=== PATIENT | male | born 1960 | race Caucasian/White ===

== ENCOUNTER 2017-02-04 08:16 | Day surgery (SDC) | payer BC ==
[~2017-02-04 08:16] MED LIST: Lactated Ringers 1,000 ML IV SCH; Lidocaine 1%/Sod Bicarbonate in NS 8.4% 1 ML Syringe PRN; Sodium Chloride 0.9% 10 ML Syringe FLUSH PRN
[2017-02-04] MEDS ORDERED: Bupivacaine 0.25% 30 ML SDV ONE (09:16)
[2017-02-04] MEDS ORDERED: EPINEPHrine 1 MG/ML 30 ML MDV ONE (09:16)
--- NOTE | 2017-02-04 09:21 | PCM.PREANE ---
Preanesthetic Assessment - Anesthesia/Transfusion/Family Hx Anesthesia History: Prior Anesthesia Without Reaction Family History of Anesthesia Reaction: No Transfusion History: No Prior Transfusion(s) Intubation History: Unknown - Review of Systems General: No Symptoms Pulmonary: No Symptoms Cardiovascular: No Symptoms Gastrointestinal: No Symptoms (occasional GERD) Neurological: No Symptoms, Seizure (disorder as a child) Other: Reports: None, Sinus Problem (allergic rhinitis) - Physical Assessment NPO Status Date: 02/03/17 NPO Status Time: 22:00 Pulse: 67 O2 Sat by Pulse Oximetry: 95 Respiratory Rate: 16 Blood Pressure: 128/83 Temperature: 36.2 C Vital Signs: Last Vital Signs Temp 36.2 C 02/04/17 08:25 Pulse 67 02/04/17 08:25 Resp 16 02/04/17 08:25 BP 128/83 02/04/17 08:25 Pulse Ox 95 02/04/17 08:25 Height: 1.91 m Weight: 112.037 kg ASA Class: 1 Mental Status: Alert & Oriented x3 Airway Class: Mallampati = 2 Dentition: Reports: Normal Dentition, Manti(s), Caries (caps in the front.) Thyro-Mental Finger Breadths: 3 Mouth Opening Finger Breadths: 3 ROM/Head Extension: Full Lungs: Clear to Auscultation, Normal Respiratory Effort Cardiovascular: Regular Rate, Regular Rhythm, No Murmurs - Lab Values: Laboratory Last Values MRSA (PCR) Negative 02/02/17 07:46 Lab values reviewed and noted and within acceptable ranges to proceed with scheduled procedure. - Imaging/EKG Impressions: EK01/01/2016 SB rate= 58, borderline T abnormalities, inferior leads, Q wave in lead III, and Twave inversion in III, and avF. Repeat EKG 01/01/2016 SB rate =59, PVC, interpolated ventricular premature complex, nonspecific T abnormalities, inferior leads. CXR: Nothing acute seen in CXR. (09/13/2015 - Allergies Allergies/Adverse Reactions: Allergies Allergy/AdvReac Type Severity Reaction Status Date / Time No Known Allergies Allergy Verified 02/03/17 16:09 - Anesthesia Plan Pre-Op Medication Ordered: None - Acknowledgements Anesthesia Type Planned: General Anesthesia Pt an Appropriate Candidate for the Planned Anesthesia: Yes Alternatives and Risks of Anesthesia Discussed w Pt/Guardian: Yes Pt/Guardian Understands and Agrees with Anesthesia Plan: Yes PreAnesthesia Questionnaire HEENT History: Reports: Allergic Rhinitis, Impaired Vision, Otitis Media, Other (See Below) Other HEENT History: conjunctivitis Cardiovascular History: Reports: High Cholesterol, Hypertension Respiratory History: Reports: Other (See Below) Other Respiratory History: cough Gastrointestinal History: Reports: Other (See Below) Other Gastrointestinal History: gastroenteritis [employer] History: Reports: None Musculoskeletal History: Reports: Other (See Below) Other Musculoskeletal History: R meniscus tear Neurological History: Reports: Seizure Psychiatric History: Reports: None Endocrine/Metabolic History: Reports: Obesity/BMI 30+ Hematologic History: Reports: None Immunologic History: Reports: None Oncologic (Cancer) History: Reports: None Dermatologic History: Reports: None - Past Surgical History Head Surgeries/Procedures: Reports: None GI Surgical History: Reports: Colonoscopy Male Surgical History: Reports: Vasectomy Oncologic Surgical History: Reports: None - SUBSTANCE USE Smoking Status *Q: Never Smoker Second Hand Smoke Exposure: No Days Per Week of Alcohol Use: 0 Number of Drinks Per Day: 0 Total Drinks Per Week: 0 Recreational Drug Use History: No - HOME MEDS Home Medications: Home Meds Aspirin [Halfprin] 81 mg PO BID 08/24/14 [History] Mometasone Furoate [Nasonex Viola] 1 spray ALLEGRA DAILY PRN 08/24/14 [History] Pravastatin Sodium 80 mg PO DAILY 02/03/17 [History] Acetaminophen [Tylenol Extra Strength] 1,000 mg PO ASDIRECTED PRN 02/04/17 [ History] - CURRENT (IN HOUSE) MEDS Current Meds: Current Medications Lactated Ringer's (Ringers, Lactated) 1,000 mls @ 125 mls/hr IV ASDIRECTED [place] Stop: 02/04/17 23:00 Last Admin: 02/04/17 08:45 Dose: 125 mls/hr Lidocaine/Sodium Bicarbonate (Buffered Lidocaine 1% In Ns 8.4%) 0.25 ml .XX ONETIME PRN PRN Reason: Prior to IV Start Stop: 02/04/17 18:00 Last Admin: 02/04/17 08:44 Dose: 0.25 ml Sodium Chloride (Saline Flush) 10 ml FLUSH ASDIRECTED PRN PRN Reason: Keep Vein Open Stop: 02/04/17 18:00
[2017-02-04] MEDS ORDERED: Propofol 200 MG/20 ML SDV ONE (10:24)
[2017-02-04] MEDS ORDERED: Midazolam 1 MG/ML 2 ML SDV ONE (10:24)
[2017-02-04] MEDS ORDERED: ceFAZolin 1 GM Vial ONE (10:25)
[2017-02-04] MEDS ORDERED: Lidocaine 1% 6 ML ONE (10:25)
[2017-02-04] MEDS ORDERED: Morphine PF 10 MG/10 ML SDV ONE (10:25)
[2017-02-04] MEDS ORDERED: fentaNYL 100 MCG/2 ML SDV ONE (10:46)
[2017-02-04] MEDS ORDERED: Ondansetron 4 MG/2 ML SDV ONE (11:30)
--- NOTE | 2017-02-04 11:54 | PCM.POSTAN ---
POST ANESTHESIA ASSESSMENT - MENTAL STATUS Mental Status: Alert, Oriented - VITAL SIGNS Pulse Rate: 62 SaO2: 96 Resp Rate: 8 Blood Pressure: 126/90 Temperature: 98.2 C - RESPIRATORY Respiratory Status: Respiratory Rate WNL, Airway Patent, O2 Saturation Stable - CARDIOVASCULAR CV Status: Pulse Rate WNL, Blood Pressure Stable - GASTROINTESTINAL GI Status: No Symptoms - PAIN Pain Score: 1 - POST OP HYDRATION Hydration Status: Adequate & Stable
[2017-02-04] MEDS ORDERED: HYDROmorphone 0.5 MG/0.5 ML Syringe IVPUSH PRN (12:00)
[2017-02-04] MEDS ORDERED: fentaNYL 100 MCG/2 ML SDV IVPUSH PRN (12:00)
--- NOTE | 2017-02-04 12:15 | PCM48HPAN ---
Post Anesthesia Note - EVALUATION WITHIN 48HRS OF ANESTHETIC Vital Signs in Normal Range: Yes Patient Participated in Evaluation: Yes Respiratory Function Stable: Yes Airway Patent: Yes Cardiovascular Function Stable: Yes Hydration Status Stable: Yes Pain Control Satisfactory: Yes Nausea and Vomiting Control Satisfactory: Yes Mental Status Recovered: Yes
[2017-02-04 14:04] VITALS: BP 119/80
--- NOTE | 2017-02-04 22:38 | PCM.OPNOTE ---
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
--- NOTE | 2017-02-04 23:35 | OR ---
DATE OF OPERATION: 02/04/2017 SURGEON: Hussain Caldwell MD OPERATION PERFORMED: Right knee video arthroscopy, partial medial meniscectomy, and plica resection. PREOPERATIVE DIAGNOSIS: Right knee medial meniscus tear. POSTOPERATIVE DIAGNOSIS: 1. 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 2. 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 ANESTHESIA: General LMA with local. ANESTHESIA PROVIDER: Alex Correa MD. ESTIMATED BLOOD LOSS: 5 mL. COMPLICATIONS: None. CONDITION: Stable. DESCRIPTION OF PROCEDURE: The patient was identified in the preoperative holding area. Proper site was marked and identified by the surgeon. The patient was taken back to the operating theater where after adequate anesthesia, the patient's right lower extremity had a nonsterile tourniquet applied and was then placed in a C-clamp cervantes. The left lower extremity was placed in a well leg cervantes. Right lower extremity was then sterilely prepped and draped in the usual sterile fashion. OR time-out was performed. The patient received 2 g of IV Ancef. Right lower extremity was then exsanguinated. Tourniquet was insufflated to 300 mmHg. At this time, a standard anterior lateral portal was created. The scope trocar was introduced and cursory examination was performed of the patellofemoral joint. 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 There were no loose foreign bodies in the mediolateral gutter. Attention was turned to the medial compartment. With the use of a spinal needle, anterior medial portal was created under direct visualization. The probe was then introduced showing a diffuse tear of the posterior horn of the medial meniscus and it was mostly an undersurface tear. At this time, with the use of resector, the undersurface portion was trimmed out. The superior portion was found to be stable. So, this was left intact secondary to the patient's known arthritis to hopefully prevent further arthritic change. At this time, after it was found to be stable, attention was turned to the notch, ACL was found to be in the notch. The lateral compartment showed no signs of chondromalacia. At this time, the patient was noted to have a large plica on the medial side and this was resected as well. There were no loose foreign bodies left in his knee. Excess saline was drained from the knee and 4-0 nylon simple suture was used for closure of the skin. The patient tolerated the procedure well, had a sterile soft dressing applied, and was sent to PACU in stable condition. FAWAD /[id number]
== END 2017-02-04 13:55 | disposition home or self-care (01) ==
LOC: JD.SDS 08:16
PROVIDERS: ATTEND Orthopaedic Surgery
PROC: 0SBC4ZZ Excision of Right Knee Joint, Percutaneous Endoscopic Approach (ICD-10-PCS; principal; 2017-02-04)
DX: S83.241A Other tear of medial meniscus, current injury, right knee, initial encounter (principal); M94.261 Chondromalacia, right knee; M17.11 Unilateral primary osteoarthritis, right knee; E78.00 Pure hypercholesterolemia, unspecified; E66.9 Obesity, unspecified; R73.03 Prediabetes; I10 Essential (primary) hypertension; Z79.82 Long term (current) use of aspirin; Z79.899 Other long term (current) drug therapy; Z98.52 Vasectomy status; Z98.890 Other specified postprocedural states; Z68.31 Body mass index [BMI] 31.0-31.9, adult
CPT/HCPCS: 29881; 87641; 93005; J0171; J0690; J2250; J2270; J2405; J3010; J7120; 01400; J2704; J3490